=== PATIENT | female | born 1960 | race Caucasian/White ===

== ENCOUNTER → 2020-12-24 | Outpatient (CLI) | payer OTHER ==
[~2020-12-24] MED LIST: CEFUROXIME500 MG PO; ZOFRAN4 MG PO
== END ==
LOC: HEART 5 10:54
DX: R07.9 Chest pain, unspecified (principal); I08.2 Rheumatic disorders of both aortic and tricuspid valves; I31.3 Pericardial effusion (noninflammatory)
CPT/HCPCS: 93306

== ENCOUNTER 2021-03-17 10:45 | Emergency (ER) | payer OTHER | END 2021-03-17 12:16 | disposition home or self-care (01) | LOC: ER1 10:45 | DX: M25.512 Pain in left shoulder (principal); E11.9 Type 2 diabetes mellitus without complications; I10 Essential (primary) hypertension; F17.210 Nicotine dependence, cigarettes, uncomplicated | CPT/HCPCS: 73030; 99283 ==

== ENCOUNTER 2021-04-04 08:17 | Emergency (ER) | payer OTHER ==
[2021-04-04 09:24] LABS: RED BLOOD COUNT 4.52 M/UL (4.00-5.10); WHITE BLOOD COUNT 14.9 K/UL (4.5-11.0)
[2021-04-04 09:49] LABS: BUN/CREATININE RATIO 36 (0-10)
== END 2021-04-04 13:24 | disposition home or self-care (01) ==
LOC: ER1 08:17
PROVIDERS: Physician Assistant
DX: R07.9 Chest pain, unspecified (principal); I10 Essential (primary) hypertension; F17.200 Nicotine dependence, unspecified, uncomplicated; Z20.822 Contact with and (suspected) exposure to COVID-19; Z79.82 Long term (current) use of aspirin; Z79.899 Other long term (current) drug therapy; Z86.19 Personal history of other infectious and parasitic diseases
CPT/HCPCS: 71045; 80053; 82550; 82553; 83874; 84484; 85025; 93005; 99285; U0002

== ENCOUNTER 2021-09-13 01:11 | Emergency (ER) | payer OTHER ==
[2021-09-13 03:14] LABS: HEMOGLOBIN 13.4 gm/dl (12.3-15.3); RED BLOOD COUNT 4.67 M/UL (4.00-5.10); WHITE BLOOD COUNT 19.5 K/UL (4.5-11.0)
[2021-09-13 03:59] LABS: BUN/CREATININE RATIO 30 (0-10)
[2021-09-13] MEDS ORDERED: PHENERGAN 25 MG25 M1 PO (04:50)
== END 2021-09-13 05:13 | disposition home or self-care (01) ==
LOC: ER1 01:11
PROVIDERS: Family Medicine
DX: U07.1 COVID-19 (principal); E11.9 Type 2 diabetes mellitus without complications; F17.200 Nicotine dependence, unspecified, uncomplicated; D72.829 Elevated white blood cell count, unspecified; E66.01 Morbid (severe) obesity due to excess calories; Z79.4 Long term (current) use of insulin; I10 Essential (primary) hypertension; E78.5 Hyperlipidemia, unspecified; J44.9 Chronic obstructive pulmonary disease, unspecified
CPT/HCPCS: 80053; 82009; 83690; 85025; 93005; 96374; 96375; 99284; J1200; J2550; J2765

== ENCOUNTER → 2022-01-13 | Outpatient (CLI) | payer OTHER ==
[~2022-01-13] MED LIST changes: +PHENERGAN 25 MG25 M1 PO
== END ==
LOC: KOH-I 13:00
DX: R22.42 Localized swelling, mass and lump, left lower limb (principal)
CPT/HCPCS: 93971

== ENCOUNTER → 2022-05-11 | Outpatient (CLI) | payer OTHER | LOC: KOH-I 16:18 | DX: M47.22 Other spondylosis with radiculopathy, cervical region (principal) | CPT/HCPCS: 72050 ==